=== PATIENT | female | born 1955 | race Caucasian/White ===

== ENCOUNTER 2018-03-20 04:20 | Inpatient (IN) | payer SELFPAY ==
[~2018-03-20] VITALS: Ht 160 cm; Wt 64.9 kg
[2018-03-20 04:21] VITALS: BP 130/91
[2018-03-20] MEDS ORDERED: ONDANSETRON 4 MG/2 ML VIAL IVP ONE (04:35)
[2018-03-20] MEDS ORDERED: NACL 0.9% 1,000 ML IV ONE ×2 (04:35→05:55)
[2018-03-20] MEDS ORDERED: MORPHINE SULFATE 4 MG/ML SYR IVP ONE (04:35)
[2018-03-20] MEDS ORDERED: DICYCLOMINE 20 MG/2 ML VIAL IM ONE (04:35)
[2018-03-20 04:55] LABS: BASOPHILS # (AUTO) 0.1 K/uL (0.00-0.22); BASOPHILS % (AUTO) 0.5 % (0.0-2.0); EOSINOPHILS # (AUTO) 0.1 K/uL (0-0.4); EOSINOPHILS % (AUTO) 0.5 % (0.0-4.0); HEMATOCRIT 48.3 % (36-48); HEMOGLOBIN 16.4 g/dL (12.0-16.0); LYMPHOCYTES # (AUTO) 1.3 K/uL (2.5-16.5); LYMPHOCYTES % (AUTO) 12.2 % (20.5-51.1); MEAN CORPUSCULAR HEMOGLOBIN 30 pg (27-31); MEAN CORPUSCULAR HGB CONC 34 g/dL (33-37); MONOCYTES # (AUTO) 0.5 K/uL (0.8-1.0); MONOCYTES % (AUTO) 4.6 % (1.7-9.3); NEUTROPHILS # (AUTO) 9.1 K/uL (1.8-7.7); NEUTROPHILS % (AUTO) 82.2 % (42.2-75.2); PLATELET COUNT (AUTO) 246 K/uL (140-450); RED BLOOD CELL COUNT(AUTO) 5.49 MIL/uL (4.20-5.40)
[2018-03-20 05:04] LABS: ANION GAP 15.4 (8-16); CREATININE 1.1 mg/dL (0.6-1.3); POTASSIUM 3.4 mmol/L (3.5-5.1)
[2018-03-20 05:10] LABS: ALBUMIN 4.6 g/dL (3.4-5.0); TOTAL BILIRUBIN 0.6 mg/dL (0.0-1.0)
[2018-03-20] MEDS ORDERED: ACETAMINOPHEN 325 MG TAB PO PRN (05:50)
[2018-03-20] MEDS ORDERED: HYDROcodone/APAP 5/325 MG 1 TAB TAB PO PRN (05:50)
[2018-03-20] MEDS ORDERED: ZOLPIDEM 5 MG TAB PO PRN (05:50)
[2018-03-20] MEDS ORDERED: LORazepam 2 MG/ML VIAL IM/IVP PRN (05:50)
[2018-03-20] MEDS ORDERED: ONDANSETRON 4 MG/2 ML VIAL IM/IVP PRN (05:50)
[2018-03-20] MEDS ORDERED: DOCUSATE SODIUM 100 MG GELCAP PO PRN (05:50)
[2018-03-20] MEDS ORDERED: KETOROLAC 30 MG/ML VIAL IVP ONE (05:55)
[2018-03-20] MEDS ORDERED: PIPERACILLIN/TAZOBACTAM 3.375 GM in DEXTROSE 5% 50 ML IV SCH (06:00)
[2018-03-20 06:36] LABS: CHOL/HDL RATIO 5.9 (1-4.5); PHOSPHORUS 2.5 mg/dL (2.5-4.9); THYROID STIMULATING HORMONE 2.49 uIU/mL (0.34-3.74)
[2018-03-20 07:20] LABS: PROTHROMBIN TIME 9.8 secs (10.8-13.4)
[2018-03-20 07:30] VITALS: BP 114/59
[2018-03-20] MEDS: NACL 0.9% 1,000 ML IV SCH ×2 (07:44→17:28)
[2018-03-20] MEDS ORDERED: INSULIN LISPRO SLIDING SCALE 100 UNITS/ML VIAL SUBQ PRN (08:30)
[2018-03-20] MEDS ORDERED: DEXTROSE 50% 50 ML SYR IVP PRN (08:30)
[2018-03-20] MEDS: LACTOBACILLUS RHAMNOSUS GG 1 EACH CAP PO SCH (09:19)
[2018-03-20 10:31] LABS: APPEARANCE,URINE CLEAR (CLEAR); BILIRUBIN,URINE NEGATIVE (NEGATIVE); BLOOD, URINE SMALL (NEGATIVE); COLOR,URINE YELLOW (YELLOW); NITRITE, URINE NEGATIVE (NEGATIVE); UGLUCOSE NEGATIVE (NEGATIVE)
[2018-03-20 10:33] LABS: LEUKOCYTE ESTERASE ,URINE 2+ (NEGATIVE)
[2018-03-20 10:34] LABS: BARBITURATE, URINE NEG. ng/ml (NEG <=200); BENZODIAZEPINE, URINE NEG. ng/mL (NEG <=200); CANNABINOID, URINE NEG. ng/mL (NEG <=50); COCAINE, URINE NEG. ng/mL (NEG <=300); OPIATE, URINE POS. ng/mL (NEG <=2000); PHENCYCLIDINE SCREEN,URINE NEG. ng/mL (NEG <=25)
[2018-03-20 10:47] LABS: RBC,URINE 0-5 (RARE) /HPF (0-5); WBC,URINE 6-15 (FEW) /HPF (0-5)
[2018-03-20 10:55] LABS: BASOPHILS % (AUTO) 0.5 % (0.0-2.0); EOSINOPHILS % (AUTO) 0.2 % (0.0-4.0); HEMATOCRIT 42.3 % (36-48); HEMOGLOBIN 14.2 g/dL (12.0-16.0); LYMPHOCYTES # (AUTO) 0.7 K/uL (2.5-16.5); LYMPHOCYTES % (AUTO) 6.8 % (20.5-51.1); MEAN CORPUSCULAR HEMOGLOBIN 30 pg (27-31); MEAN CORPUSCULAR HGB CONC 34 g/dL (33-37); MEAN CORPUSCULAR VOLUME 88.6 fL (80-94); MONOCYTES # (AUTO) 0.4 K/uL (0.8-1.0); MONOCYTES % (AUTO) 3.4 % (1.7-9.3); NEUTROPHILS # (AUTO) 9.3 K/uL (1.8-7.7); NEUTROPHILS % (AUTO) 89.1 % (42.2-75.2); PLATELET COUNT (AUTO) 205 K/uL (140-450); RED BLOOD CELL COUNT(AUTO) 4.78 MIL/uL (4.20-5.40); RED CELL DISTRIBUTION WIDTH 13.1 % (11.6-13.7); WHITE BLOOD COUNT (AUTO) 10.4 K/uL (4.8-10.8)
[2018-03-20 11:06] LABS: ANION GAP 12.4 (8-16); CARBON DIOXIDE 26.3 mmol/L (21-32); CREATININE 0.8 mg/dL (0.6-1.3); POTASSIUM 3.7 mmol/L (3.5-5.1)
[2018-03-20] MEDS: PIPER/TAZO 3.375GM/D5W PREMIX 50 ML IV SCH ×2 (11:46→17:12)
[2018-03-20] MEDS: BLOOD GLUCOSE MONITORING 1 DEV DEV FS SCH ×3 (11:53→20:44)
[2018-03-20 12:00] VITALS: BP 101/59
[2018-03-20] MEDS ORDERED: KETOROLAC 15 MG/ML VIAL IM PRN (12:00)
[2018-03-20] MEDS: metroNIDAZOLE 500 MG/NS PREMIX 100 ML IV SCH ×2 (12:49→20:36)
[2018-03-20 16:00] VITALS: BP 106/62
[2018-03-20 20:00] VITALS: BP 100/64
[2018-03-21] VITALS: BP 108/61
[2018-03-21 04:00] VITALS: BP 115/67
[2018-03-21] MEDS: NACL 0.9% 1,000 ML IV SCH (04:05)
[2018-03-21] MEDS: metroNIDAZOLE 500 MG/NS PREMIX 100 ML IV SCH (04:05)
[2018-03-21] MEDS: PIPER/TAZO 3.375GM/D5W PREMIX 50 ML IV SCH ×2 (05:24)
[2018-03-21] MEDS: BLOOD GLUCOSE MONITORING 1 DEV DEV FS SCH (05:36)
[2018-03-21 05:58] LABS: BASOPHILS % (AUTO) 0.6 % (0.0-2.0); EOSINOPHILS # (AUTO) 0.1 K/uL (0-0.4); EOSINOPHILS % (AUTO) 1.5 % (0.0-4.0); HEMATOCRIT 38.4 % (36-48); HEMOGLOBIN 12.9 g/dL (12.0-16.0); LYMPHOCYTES # (AUTO) 1.5 K/uL (2.5-16.5); LYMPHOCYTES % (AUTO) 30.6 % (20.5-51.1); MEAN CORPUSCULAR HEMOGLOBIN 30 pg (27-31); MEAN CORPUSCULAR HGB CONC 34 g/dL (33-37); MEAN CORPUSCULAR VOLUME 89.7 fL (80-94); MONOCYTES # (AUTO) 0.3 K/uL (0.8-1.0); MONOCYTES % (AUTO) 5.9 % (1.7-9.3); NEUTROPHILS % (AUTO) 61.4 % (42.2-75.2); PLATELET COUNT (AUTO) 184 K/uL (140-450); RED BLOOD CELL COUNT(AUTO) 4.28 MIL/uL (4.20-5.40); RED CELL DISTRIBUTION WIDTH 13.1 % (11.6-13.7); WHITE BLOOD COUNT (AUTO) 4.8 K/uL (4.8-10.8)
[2018-03-21 07:02] LABS: ANION GAP 10.8 (8-16); CARBON DIOXIDE 27.6 mmol/L (21-32); CREATININE 0.9 mg/dL (0.6-1.3); POTASSIUM 3.4 mmol/L (3.5-5.1)
[2018-03-21 08:00] VITALS: BP 112/67
[2018-03-21] MEDS: LACTOBACILLUS RHAMNOSUS GG 1 EACH CAP PO SCH (08:41)
[2018-03-21] MEDS ORDERED: SENN-89 PO (09:01)
[2018-03-21] MEDS ORDERED: DOCU-299 PO (09:02)
[2018-03-21] MEDS ORDERED: POTASSIUM CHLORIDE 10 MEQ TABER PO SCH (11:00)
[2018-03-21 12:00] VITALS: BP 106/63
== END 2018-03-21 12:30 | disposition home or self-care (01) | DRG 872 ==
LOC: MED 04:20 → MTU 05:53
PROVIDERS: ADMIT General Practice; ATTEND General Practice
PROC: 0D9670Z Drainage of Stomach with Drainage Device, Via Natural or Artificial Opening (ICD-10-PCS; principal; 2018-03-20)
DX: A41.9 Sepsis, unspecified organism (principal); K56.609 Unspecified intestinal obstruction, unspecified as to partial versus complete obstruction; E78.5 Hyperlipidemia, unspecified; R73.9 Hyperglycemia, unspecified
CPT/HCPCS: 36415; 71045; 74250; 80048; 80053; 80305; 81001; 82948; 83036; 83605; 83690; 83735; 84100; 84134; 84443; 85025; 85610; 85730; 87040; 87081; 93005; 96361; 96372; 96374; 96375; 99285; J0500; J1815; J1885; J2270; J2405; J2543; J3490; J7030; J7060; Q0092

== ENCOUNTER 2021-04-20 15:47 | Emergency (ER) | payer MEDICAID, SELFPAY ==
[~2021-04-20] VITALS: Ht 157.5 cm; Wt 67.1 kg
[~2021-04-20 15:47] MED LIST: ASPI-1822 PO; ATOR20TA PO; CEPH250C16 PO
[2021-04-20 16:07] VITALS: BP 123/96
--- NOTE | 2021-04-20 16:13 | NUR ---
pt ambulated to bed 08
--- NOTE | 2021-04-20 16:26 | NUR ---
EKG AT BEDSIDE.
--- NOTE | 2021-04-20 16:26 | NUR ---
65 Y/O F HERE FOR DIZZINES, L ABD PAIN AND GENERAL WEEKNESS. PAIN 5/10. WHILE IN TREAGE SHE FELT SEEING ALL BLACK BUT AMBULATED TO THE ROOM OK WITH NO ASSISTANCE. THEO PMH: HYPERLIPIDEMIA
[2021-04-20] MEDS ORDERED: METOCLOPRAMIDE 10 MG/2 ML INJ VIAL IVP ONE (16:45)
[2021-04-20] MEDS ORDERED: MECLIZINE 25 MG TAB PO ONE (16:45)
[2021-04-20 16:47] LABS: BASOPHILS % (AUTO) 0.7 % (0.0-2.0); EOSINOPHILS % (AUTO) 0.6 % (0.0-4.0); HEMATOCRIT 42.8 % (36-48); HEMOGLOBIN 14.6 g/dL (12.0-16.0); LYMPHOCYTES # (AUTO) 0.9 K/uL (2.5-16.5); LYMPHOCYTES % (AUTO) 20.2 % (20.5-51.1); MEAN CORPUSCULAR HEMOGLOBIN 30 pg (27-31); MEAN CORPUSCULAR HGB CONC 34 g/dL (33-37); MEAN CORPUSCULAR VOLUME 89.1 fL (80-94); MONOCYTES # (AUTO) 0.2 K/uL (0.8-1.0); MONOCYTES % (AUTO) 5.4 % (1.7-9.3); NEUTROPHILS # (AUTO) 3.3 K/uL (1.8-7.7); NEUTROPHILS % (AUTO) 73.1 % (42.2-75.2); PLATELET COUNT (AUTO) 247 K/uL (140-450); RED CELL DISTRIBUTION WIDTH 13.1 % (11.6-13.7); WHITE BLOOD COUNT (AUTO) 4.5 K/uL (4.8-10.8)
[2021-04-20 17:35] LABS: ALBUMIN 3.7 g/dL (3.4-5.0); ANION GAP 15.5 (8-16); CARBON DIOXIDE 22.1 mmol/L (21-32); CREATININE 0.9 mg/dL (0.6-1.3); MAGNESIUM 2.2 mg/dL (1.8-2.4); PHOSPHORUS 2.8 mg/dL (2.5-4.9); POTASSIUM 3.6 mmol/L (3.5-5.1); THYROID STIMULATING HORMONE 2.56 uIU/mL (0.34-3.74); TOTAL BILIRUBIN 0.4 mg/dL (0.0-1.0)
[2021-04-20] MEDS ORDERED: MECL-303 PO (18:12)
[2021-04-20 19:13] VITALS: BP 98/55
--- NOTE | 2021-04-20 19:15 | NUR ---
Patient discharged with v/s stable. Written and verbal after care instructions given and explained. Patient alert, oriented and verbalized understanding of instructions. Ambulatory with steady gait. All questions addressed prior to discharge. ID band removed. Patient advised to follow up with PMD. Rx of MECLIZINE HCI given. Opportunity to ask questions provided and answered.
--- NOTE | 2021-04-20 19:16 | NUR ---
Chart checked and completed. The patient's care was reviewed and supervised by Amy Rush RN.
== END 2021-04-20 19:13 | disposition home or self-care (01) ==
LOC: MED 15:47
DX: H81.399 Other peripheral vertigo, unspecified ear (principal); R42 Dizziness and giddiness; E78.5 Hyperlipidemia, unspecified; Z79.899 Other long term (current) drug therapy
CPT/HCPCS: 36415; 71045; 80053; 83690; 83735; 84100; 84443; 84484; 85025; 93005; 96374; 99285; J2765; J8597; Q0092